=== PATIENT | male | born 1940 | race Caucasian/White ===

== ENCOUNTER → 2022-09-07 11:02 | Outpatient (CLI) | payer MEDICARE, SELFPAY ==
--- NOTE | 2022-09-07 11:09 | XR_ITS ---
FINAL REPORT CLINICAL HISTORY: fracture FINDINGS: LEFT CLAVICLE 3 views were obtained. There is a comminuted fracture of the distal aspect of the clavicle with superior displacement of the proximal fracture fragment. The acromioclavicular joint is intact. IMPRESSION: Fracture of the distal clavicle with superior displacement of the proximal fracture fragment. Reviewed, Interpreted and Dictated by Josue Vazquez III, MD Transcribed by Avelina Miller Authenticated and [facility]
== END ==
PROVIDERS: PCP Family Medicine; Visit Provider Orthopaedic Surgery
DX: S42.002A Fracture of unspecified part of left clavicle, initial encounter for closed fracture (principal)
CPT/HCPCS: 73000

== ENCOUNTER → 2022-10-07 07:21 | Outpatient (CLI) | payer MEDICARE, SELFPAY ==
--- NOTE | 2022-10-07 07:37 | MR_ITS ---
FINAL REPORT CLINICAL HISTORY: AMS, encephalopathy. confusion FINDINGS: Multi planar MR imaging was obtained through the brain without contrast. There is moderate atrophy. The midline structures appear intact. There is no evidence of Chiari malformation. There is moderate increased signal in the deep white matter consistent with moderate chronic ischemic/gliotic changes. On diffusion-weighted images there is no evidence of restricted diffusion. The visualized paranasal sinuses demonstrate normal signal voids. The seventh and eighth nerve root complexes are intact. IMPRESSION: Atrophy and moderate chronic ischemic/gliotic changes. Reviewed, Interpreted and Dictated by Jass Wood MD Transcribed by Shana Smith Authenticated and [facility]
== END ==
PROVIDERS: PCP Family Medicine; Visit Provider Nurse Practitioner Family
DX: G93.40 Encephalopathy, unspecified (principal); G93.89 Other specified disorders of brain; R29.6 Repeated falls; R41.82 Altered mental status, unspecified; R90.89 Other abnormal findings on diagnostic imaging of central nervous system
CPT/HCPCS: 70551

== ENCOUNTER → 2022-10-12 09:31 | Outpatient (CLI) | payer MEDICARE, SELFPAY | PROVIDERS: PCP Family Medicine; Visit Provider Nurse Practitioner Family | DX: G93.40 Encephalopathy, unspecified (principal); R41.82 Altered mental status, unspecified; R29.6 Repeated falls; R90.89 Other abnormal findings on diagnostic imaging of central nervous system; G93.89 Other specified disorders of brain | CPT/HCPCS: 95816 ==

== ENCOUNTER → 2022-11-12 07:59 | Outpatient (CLI) | payer MEDICARE, SELFPAY ==
--- NOTE | 2022-11-12 08:02 | MR_ITS ---
FINAL REPORT CLINICAL HISTORY: back pain, abn gait, abn exam FINDINGS: MRI LUMBAR SPINE W/O CONTRAST Multiplanar MR imaging of the lumbar spine was performed without contrast. On the sagittal T2-weighted images, disc degeneration is seen at several levels. There are endplate changes at L5-S1. There is 6 mm of anterolisthesis of L5 on S1. The vertebral alignment is otherwise normal. There is a moderate chronic L4 compression fracture. No acute fracture is identified. The conus has an unremarkable appearance. T12-L1: No significant central canal stenosis or neural foraminal narrowing. L1-2: No significant central canal stenosis or neural foraminal narrowing. L2-3: An annular disc bulge is present. L3-4: There is an annular disc bulge with facet arthropathy and vertebral osteophytes. There is moderate right and mild left neural foraminal narrowing. L4-5: An annular disc bulge with facet arthropathy is present. There is mild bilateral neural foraminal narrowing. There is a small synovial cyst measuring 8 mm posterior to the facet joint on the left. L5-S1: An annular disc bulge with facet arthropathy is present. There are bilateral L5 pars defects. There is grade 1 anterolisthesis of L5 on S1. There is moderate right and mild left neural foraminal narrowing. IMPRESSION: Multilevel disc degeneration and spondylosis, most pronounced at L5-S1. Small synovial cyst posterior to the facet joint on the left at L4-5. Reviewed, Interpreted and Dictated by Josue Vazquez III, MD Transcribed by Avelina Miller Authenticated and [facility]
== END ==
PROVIDERS: PCP Family Medicine; Visit Provider Nurse Practitioner Family
DX: R26.2 Difficulty in walking, not elsewhere classified; R90.89 Other abnormal findings on diagnostic imaging of central nervous system; D64.9 Anemia, unspecified; R25.8 Other abnormal involuntary movements; R29.2 Abnormal reflex
CPT/HCPCS: 72148; 76376

== ENCOUNTER → 2023-05-19 08:43 | Outpatient (POV) | payer MEDICARE, SELFPAY | PROVIDERS: Visit Provider Specialist/Technologist | DX: Z00.00 Encounter for general adult medical examination without abnormal findings (principal) ==

== ENCOUNTER → 2023-06-20 07:59 | Outpatient (CLI) | payer MEDICARE, SELFPAY ==
--- NOTE | 2023-06-20 08:01 | US_ITS ---
PROCEDURE INFORMATION: Exam: US Left Breast, Complete Exam date and time: 06/20/2023 8:07 AM Age: 82 years old Clinical indication: Lt breast pain . Left breast palpable abnormality TECHNIQUE: Imaging protocol: Complete ultrasound of all four quadrants of the left breast and the retroareolar regions, including ultrasound of the axilla when performed. COMPARISON: No relevant prior studies available. FINDINGS: Breast: Sonographic images of the left retroareolar region where the patient reports a palpable abnormality demonstrates nonspecific hypoechoic tissue most consistent with benign gynecomastia. No suspicious solid or cystic masses are noted. Cursors were placed over an incidental lipoma in the 6 o'clock axis measuring 0.4 cm and an adjacent 0.5 cm lipoma in the 5 o'clock axis. No axillary adenopathy. IMPRESSION: Patient to return for a diagnostic bilateral mammogram for full evaluation of the patient's complaint of a palpable abnormality ASSESSMENT: BI-RADS Category 0: Incomplete- Need Additional Imaging Evaluation and/or Prior Mammograms for Comparison
== END ==
PROVIDERS: PCP Family Medicine; Visit Provider Nurse Practitioner Family
DX: N64.4 Mastodynia (principal)
CPT/HCPCS: 76641

== ENCOUNTER → 2023-07-11 14:42 | Outpatient (CLI) | payer MEDICARE, SELFPAY | PROVIDERS: PCP Family Medicine; Visit Provider Nurse Practitioner Family | DX: R92.8 Other abnormal and inconclusive findings on diagnostic imaging of breast (principal) ==

== ENCOUNTER → 2023-08-23 13:15 | Outpatient (CLI) | payer MEDICARE, SELFPAY ==
[2023-08-23 14:45] LABS: Basophils % 0.2 % (0.1-2.0); Eosinophils % 0.1 % (0.1-12.0); Hematocrit 42.3 % (42.0-52.0); Lymphocytes # 1.1 K/mm3 (0.7-4.5); Lymphocytes % 7.2 % (10-50); Mean Corpuscular HGB Conc 33.2 g/dL (31.8-35.4); Mean Corpuscular Hemoglobin 31.7 pg (27.0-31.2); Mean Corpuscular Volume 95.6 fl (80-94); Mean Platelet Volume 9.2 fl (7.4-10.4); Monocytes # 0.7 K/mm3 (0.1-1.0); Monocytes % 4.4 % (1.7-9.3); Neutrophils # 13.9 K/mm3 (1.8-7.8); Neutrophils % 88.1 % (37.0-80.0); Platelet Count 141 K/mm3 (142-424); Red Blood Count 4.43 M/mm3 (4.60-6.20); Red Cell Distribution Width 13.7 % (11.5-17.5); White Blood Count 15.8 K/mm3 (4.8-10.8)
[2023-08-23 14:57] LABS: MANUAL DIFFERENTIAL MANUAL DIFFERENTIAL (MANUAL DIFF)
[2023-08-23 15:43] LABS: Lymphocytes % 13 % (10-50); Monocytes % 5 % (2-9); Neutrophils % 82 % (42-76); Platelet Estimate Normal; RBC Morphology Normal; Total Cells Counted 100
== END ==
LOC: LAB.DROPOF 13:27
PROVIDERS: PCP Family Medicine; Visit Provider Family Medicine
DX: B96.29 Other Escherichia coli [E. coli] as the cause of diseases classified elsewhere; R53.1 Weakness
CPT/HCPCS: 85007; 85025; 87086